=== PATIENT | male | born 1970 | race Caucasian/White ===

== ENCOUNTER 2018-11-08 06:12 | Emergency (ER) | payer MEDICAID ==
[~2018-11-08] VITALS: Ht 180.3 cm; Wt 67.0 kg
[~2018-11-08 06:12] MED LIST: NAPR-1154 PO
[2018-11-08 06:16] VITALS: BP 126/97
[2018-11-08] MEDS ORDERED: HYDR-4353 PO (06:30)
== END 2018-11-08 06:35 | disposition home or self-care (01) ==
LOC: ER 06:12
DX: M65.341 Trigger finger, right ring finger (principal); M79.641 Pain in right hand; K21.9 Gastro-esophageal reflux disease without esophagitis; F12.90 Cannabis use, unspecified, uncomplicated; F17.200 Nicotine dependence, unspecified, uncomplicated; Z79.899 Other long term (current) drug therapy; W22.8XXA Striking against or struck by other objects, initial encounter; Y93.55 Activity, bike riding; Y92.89 Other specified places as the place of occurrence of the external cause; Y99.8 Other external cause status
CPT/HCPCS: 99283

== ENCOUNTER 2019-08-31 14:58 | Emergency (ER) | payer MEDICAID ==
[~2019-08-31] VITALS: Ht 180.3 cm; Wt 70.5 kg
[2019-08-31 15:14] VITALS: BP 132/83
[2019-08-31] MEDS ORDERED: IBUP-1984 PO (15:36)
== END 2019-08-31 16:38 | disposition home or self-care (01) ==
LOC: ER 14:58
DX: M65.341 Trigger finger, right ring finger (principal); M79.641 Pain in right hand; R20.2 Paresthesia of skin; K21.9 Gastro-esophageal reflux disease without esophagitis; F12.90 Cannabis use, unspecified, uncomplicated; Z72.89 Other problems related to lifestyle; Z79.899 Other long term (current) drug therapy
CPT/HCPCS: 73130; 99284

== ENCOUNTER 2021-01-02 16:12 | Emergency (ER) | payer MEDICAID ==
[~2021-01-02] VITALS: Ht 177.8 cm; Wt 71.0 kg
[~2021-01-02 16:12] MED LIST changes: +LIDOcaine 1% 30ml preserv. free vial ONE
[2021-01-02 16:58] VITALS: BP 118/102
[2021-01-02] MEDS ORDERED: TETanus/Pertussis (Acell)/Diphther VAC/PF (Tdap-Adult) 0.5ml syringe IMVAC ONE (17:05)
[2021-01-02] MEDS ORDERED: SULF1TAB49 PO (17:27)
--- NOTE | 2021-01-02 18:37 | NUR ---
pt discharged, ordered overlooked.
== END 2021-01-02 18:39 | disposition home or self-care (01) ==
LOC: ER 16:13
DX: S00.432A Contusion of left ear, initial encounter (principal); H92.02 Otalgia, left ear; K21.9 Gastro-esophageal reflux disease without esophagitis; F12.90 Cannabis use, unspecified, uncomplicated; Z72.89 Other problems related to lifestyle; Z79.2 Long term (current) use of antibiotics; Z79.899 Other long term (current) drug therapy; X58.XXXA Exposure to other specified factors, initial encounter; Y93.89 Activity, other specified; Y92.89 Other specified places as the place of occurrence of the external cause; Y99.8 Other external cause status
CPT/HCPCS: 69000; 99283; J2001; 10060

== ENCOUNTER 2021-01-21 21:59 | Emergency (ER) | payer MEDICAID ==
[~2021-01-21] VITALS: Ht 180.3 cm; Wt 79.5 kg
[~2021-01-21 21:59] MED LIST changes: -LIDOcaine 1% 30ml preserv. free vial ONE
[2021-01-21 22:04] VITALS: BP 137/95
[2021-01-22] MEDS ORDERED: ibuprofen tablet 400 MG TABLET PO ONE (00:15)
[2021-01-22] MEDS ORDERED: AMOX-422 PO (00:26)
[2021-01-22] MEDS ORDERED: IBUP-1986 PO (00:26)
== END 2021-01-22 00:37 | disposition home or self-care (01) ==
LOC: ER 21:59
DX: H92.02 Otalgia, left ear (principal); F12.10 Cannabis abuse, uncomplicated; K21.9 Gastro-esophageal reflux disease without esophagitis; Z79.899 Other long term (current) drug therapy
CPT/HCPCS: 99284

== ENCOUNTER 2021-02-12 18:45 | Emergency (ER) | payer MEDICAID ==
[~2021-02-12] VITALS: Ht 180.3 cm; Wt 79.5 kg
[~2021-02-12 18:45] MED LIST changes: +IBUP-1986 PO
[2021-02-12 18:51] VITALS: BP 118/87
[2021-02-12 22:56] LABS: BASOPHILS % (AUTO) 0.3 % (0-1); EOSINOPHILS % (AUTO) 0.2 % (0-6); HEMATOCRIT 42.4 % (42.0-52.0); HEMOGLOBIN 14.6 g/dl (14.0-17.9); LYMPHOCYTES # (AUTO) 0.9 X10'3 (1.1-4.8); LYMPHOCYTES % (AUTO) 10.1 % (21-51); MEAN CORPUSCULAR HEMOGLOBIN 31.5 PG (27.0-31.0); MEAN CORPUSCULAR HGB CONC 34.4 g/dL (33.0-36.5); MEAN CORPUSCULAR VOLUME 91.6 FL (78-98); MEAN PLATELET VOLUME 6.7 FL (7.4-10.4); MONOCYTES # (AUTO) 0.7 X10'3 (0-0.9); MONOCYTES % (AUTO) 8.3 % (2-12); NEUTROPHILS # (AUTO) 7.3 X10'3 (1.8-7.7); NEUTROPHILS % (AUTO) 81.1 % (42-75); PLATELET COUNT 302 X10'3 (140-440); RED BLOOD COUNT 4.63 X10'6 (4.70-6.10); RED CELL DISTRIBUTION WIDTH 13.6 % (11.5-14.5)
[2021-02-12 23:03] LABS: ALBUMIN 3.5 G/DL (3.4-5.0); ANION GAP 5 (8-16); BLOOD UREA NITROGEN 10 MG/DL (7-18); C-REACTIVE PROTEIN 3.82 MG/DL (0.0-0.5); CALCIUM 8.3 MG/DL (8.5-10.1); CHLORIDE 102 MMOL/L (99-107); CREATININE 1.11 MG/DL (0.60-1.10); GLUCOSE 90 MG/DL (70-104); POTASSIUM 4.3 MMOL/L (3.5-5.1); SODIUM 139 MMOL/L (135-145); TOTAL CARBON DIOXIDE 32.4 MMOL/L (24-32); eGFR 71 ML/MIN
[2021-02-13] MEDS ORDERED: HYDROcodone/acetaminophen 5mg/325mg tablet PO ONE
== END 2021-02-13 00:06 | disposition left against medical advice (07) ==
LOC: ER 18:45
DX: M25.521 Pain in right elbow (principal); M79.601 Pain in right arm; K21.9 Gastro-esophageal reflux disease without esophagitis; F17.200 Nicotine dependence, unspecified, uncomplicated; F12.90 Cannabis use, unspecified, uncomplicated; Z72.89 Other problems related to lifestyle; Z79.899 Other long term (current) drug therapy
CPT/HCPCS: 36415; 73080; 73090; 80048; 85025; 85651; 86140; 99284

== ENCOUNTER 2021-04-24 11:46 | Emergency (ER) | payer MEDICAID, OTHER ==
[~2021-04-24] VITALS: Ht 180.3 cm; Wt 80.0 kg
[2021-04-24 12:31] VITALS: BP 116/86
[2021-04-24] MEDS ORDERED: TETanus/Pertussis (Acell)/Diphther VAC/PF (Tdap-Adult) 0.5ml syringe IMVAC ONE (13:05)
== END 2021-04-24 15:48 | disposition home or self-care (01) ==
LOC: ER 11:46
DX: M54.2 Cervicalgia (principal); M54.50 Low back pain, unspecified; K76.9 Liver disease, unspecified; M25.511 Pain in right shoulder; M79.642 Pain in left hand; K21.9 Gastro-esophageal reflux disease without esophagitis; F12.90 Cannabis use, unspecified, uncomplicated; F15.90 Other stimulant use, unspecified, uncomplicated; V29.9XXA Motorcycle rider (driver) (passenger) injured in unspecified traffic accident, initial encounter; Y93.89 Activity, other specified; Y92.89 Other specified places as the place of occurrence of the external cause; Y99.8 Other external cause status
CPT/HCPCS: 70450; 72074; 72125; 72128; 73130; 99284

== ENCOUNTER 2022-09-11 11:31 | Emergency (ER) | payer MEDICAID ==
[~2022-09-11] VITALS: Ht 180.3 cm; Wt 79.5 kg
[2022-09-11] MEDS ORDERED: tamsulosin 0.4mg capsule PO STA (12:16)
[2022-09-11] MEDS ORDERED: ketorolac trometh. 30mg/ml inj. IV ONE (12:20)
[2022-09-11] MEDS ORDERED: normal saline 1000ML IV soln IVB ONE (12:20)
[2022-09-11 12:52] LABS: BASOPHILS % (AUTO) 0.5 % (0-1); EOSINOPHILS # (AUTO) 0.1 X10'3 (0-0.9); EOSINOPHILS % (AUTO) 0.8 % (0-6); HEMATOCRIT 40.8 % (42.0-52.0); HEMOGLOBIN 13.7 g/dl (14.0-17.9); LYMPHOCYTES # (AUTO) 1.7 X10'3 (1.1-4.8); LYMPHOCYTES % (AUTO) 19.4 % (21-51); MEAN CORPUSCULAR HEMOGLOBIN 30.9 PG (27.0-31.0); MEAN CORPUSCULAR HGB CONC 33.6 g/dL (33.0-36.5); MEAN CORPUSCULAR VOLUME 91.9 FL (78-98); MEAN PLATELET VOLUME 7.2 FL (7.4-10.4); MONOCYTES # (AUTO) 0.5 X10'3 (0-0.9); MONOCYTES % (AUTO) 5.6 % (2-12); NEUTROPHILS # (AUTO) 6.5 X10'3 (1.8-7.7); NEUTROPHILS % (AUTO) 73.7 % (42-75); PLATELET COUNT 336 X10'3 (140-440); RED BLOOD COUNT 4.44 X10'6 (4.70-6.10); RED CELL DISTRIBUTION WIDTH 13.4 % (11.5-14.5); WHITE BLOOD COUNT 8.9 X10'3 (4.5-11.0)
[2022-09-11 13:29] LABS: ALANINE AMINOTRANSFERASE 21 U/L (12-78); ALBUMIN 3.7 G/DL (3.4-5.0); ALBUMIN/GLOBULIN RATIO 1.3 (1.1-1.5); ALKALINE PHOSPHATASE 96 IU/L (46-116); ANION GAP 7 (8-16); ASPARTATE AMINO TRANSFERASE 20 U/L (10-37); BILIRUBIN,TOTAL 0.3 MG/DL (0.1-1.0); BLOOD UREA NITROGEN 13 MG/DL (7-18); BUN/CREATININE RATIO 11.2 (10.0-20.0); CALCIUM 8.8 MG/DL (8.5-10.1); CHLORIDE 104 MMOL/L (99-107); CREATININE 1.16 MG/DL (0.60-1.10); GLUCOSE 153 MG/DL (70-104); POTASSIUM 3.3 MMOL/L (3.5-5.1); SODIUM 139 MMOL/L (135-145); TOTAL CARBON DIOXIDE 27.6 MMOL/L (24-32); TOTAL PROTEIN 6.5 G/DL (6.4-8.2); eGFR 67 ML/MIN
[2022-09-11] MEDS ORDERED: TRAM50TA2 PO (14:12)
[2022-09-11] MEDS ORDERED: FLO0.4C PO (14:12)
[2022-09-11] MEDS ORDERED: NAPR-56 PO (14:12)
[2022-09-11 14:18] LABS: CLARITY,URINE CLOUDY (Clear); COLOR,URINE YELLOW (Yellow); GLUCOSE, URINE NEGATIVE (Neg); KETONES,URINE TRACE mg/dl (Neg); LEUKOCYTE ESTERASE ,URINE NEGATIVE (Neg); NITRITES, URINE NEGATIVE (Neg); OCCULT BLOOD,URINE MODERATE (Neg); PH,URINE 5.5 (4.8-8.0); PROTEIN,URINE TRACE mg/dl (Neg); UROBILINOGEN,URINE 0.2 E.U/dL (0.2-1.0)
[2022-09-11 14:20] LABS: UA COLLECTION TYPE URINAL
[2022-09-11 14:26] LABS: MUCUS STRANDS MODERATE /LPF (Neg)
[2022-09-11 14:27] LABS: SQUAMOUS EPITHELIAL CELL,UR FEW /LPF (FEW)
[2022-09-11 14:28] LABS: HYALINE CASTS 0-3 /LPF (NEGATIVE)
[2022-09-11 14:31] LABS: BACTERIA,URINE FEW /HPF (Neg); WBC,URINE 0-4 /HPF (0-4)
[2022-09-11 14:32] LABS: RBC,URINE 50-100 /HPF (0-2)
[2022-09-11 14:38] LABS: TRANSITIONAL EPI CELLS,URINE FEW /HPF
[2022-09-11 15:38] VITALS: BP 142/67
== END 2022-09-11 15:40 | disposition home or self-care (01) ==
LOC: ER 11:31
DX: N20.0 Calculus of kidney (principal); K21.9 Gastro-esophageal reflux disease without esophagitis; F12.90 Cannabis use, unspecified, uncomplicated; F15.90 Other stimulant use, unspecified, uncomplicated; F17.200 Nicotine dependence, unspecified, uncomplicated; Z72.89 Other problems related to lifestyle; Z79.899 Other long term (current) drug therapy
CPT/HCPCS: 36415; 74176; 80053; 81001; 85025; 96361; 96374; 99285; J1885; J7030

== ENCOUNTER 2022-12-17 05:58 | Emergency (ER) | payer MEDICAID ==
[~2022-12-17] VITALS: Ht 180.3 cm; Wt 79.5 kg
[2022-12-17 06:08] VITALS: TEMP 98.4
[2022-12-17 09:56] VITALS: BP 106/75; PULSE 58; RESP 16; O2SAT 96
== END 2022-12-17 11:55 | disposition left against medical advice (07) ==
LOC: ER 05:59
DX: M25.552 Pain in left hip (principal); Z53.21 Procedure and treatment not carried out due to patient leaving prior to being seen by health care provider
CPT/HCPCS: 73502; 99281

== ENCOUNTER 2023-08-06 21:26 | Emergency (ER) | payer MEDICAID ==
[~2023-08-06] VITALS: Ht 180.3 cm; Wt 78.0 kg
[2023-08-06 21:38] VITALS: BP 128/95; PULSE 89; RESP 16; TEMP 97.8; O2SAT 96
[2023-08-06] MEDS ORDERED: CYCL-1 PO (23:11)
[2023-08-06] MEDS ORDERED: IBUP-1984 PO (23:11)
== END 2023-08-06 23:22 | disposition home or self-care (01) ==
LOC: ER 21:27
DX: M25.552 Pain in left hip (principal); F12.90 Cannabis use, unspecified, uncomplicated; F15.90 Other stimulant use, unspecified, uncomplicated; K21.9 Gastro-esophageal reflux disease without esophagitis; Z79.899 Other long term (current) drug therapy; Z79.2 Long term (current) use of antibiotics; W18.39XA Other fall on same level, initial encounter; Y93.89 Activity, other specified; Y92.89 Other specified places as the place of occurrence of the external cause; Y99.8 Other external cause status
CPT/HCPCS: 73502; 99283